=== PATIENT | male | born 1985 | race Caucasian/White ===

== ENCOUNTER 2017-10-08 11:36 | Emergency (ER) | payer OTHER ==
[~2017-10-08] VITALS: Ht 172.7 cm; Wt 113.4 kg
[2017-10-08 11:45] VITALS: BP_SYST 152
[2017-10-08] MEDS ORDERED: LIDOCAINE 1% 10 MG/ML, 20 ML MDV IJ ONE (12:15)
[2017-10-08] MEDS ORDERED: DIPH-TET-PERTUS Vaccine 0.5 ML VIAL (ADACEL) IM ONE (12:15)
[2017-10-08] MEDS ORDERED: BACITRACIN 1 GM OINT TP ONE (12:15)
[2017-10-08 14:00] VITALS: BP_SYST 141
== END 2017-10-08 14:00 | disposition home or self-care (01) ==
LOC: SED 11:36
DX: S61.212A Laceration without foreign body of right middle finger without damage to nail, initial encounter (principal); W31.89XA Contact with other specified machinery, initial encounter; Y93.89 Activity, other specified; Y92.89 Other specified places as the place of occurrence of the external cause; Y99.8 Other external cause status
CPT/HCPCS: 12001; 90471; 90715; 99283; J2001

== ENCOUNTER 2017-10-22 14:37 | Emergency (ER) | payer OTHER ==
[~2017-10-22] VITALS: Ht 172.7 cm; Wt 113.4 kg
[2017-10-22 14:41] VITALS: BP_SYST 159
[2017-10-22] MEDS ORDERED: BACITRACIN 1 GM OINT TP ONE (15:00)
[2017-10-22 15:50] VITALS: BP_SYST 148
== END 2017-10-22 15:25 | disposition home or self-care (01) ==
LOC: SED 14:37
DX: S61.212D Laceration without foreign body of right middle finger without damage to nail, subsequent encounter (principal); R03.0 Elevated blood-pressure reading, without diagnosis of hypertension; X58.XXXD Exposure to other specified factors, subsequent encounter
CPT/HCPCS: 99283